=== PATIENT | male | born 1930 | race African-American/Black ===

== ENCOUNTER 2017-10-12 15:40 | Outpatient (CLI) | END 2017-10-12 16:00 | disposition short-term general hospital (02) | LOC: AMBL 15:40 | PROVIDERS: ATTEND Internal Medicine | DX: R11.2 Nausea with vomiting, unspecified (principal); R40.4 Transient alteration of awareness ==

== ENCOUNTER 2018-09-12 19:22 | Outpatient (CLI) ==
[2018-09-12 19:36] VITALS: BMI 22.8
== END 2018-09-12 19:26 | disposition critical access hospital (66) ==
LOC: AMBL 19:22
PROVIDERS: ATTEND Internal Medicine Geriatric Medicine
DX: I46.9 Cardiac arrest, cause unspecified (principal)

== ENCOUNTER 2018-09-12 19:33 | Emergency (ER) ==
[~2018-09-12 19:33] MED LIST: EPINEPHRINE 1 MG/10 ML SYRINGE IV STA; SODIUM BICARBONATE 8.4% IVP STA
[2018-09-12] MEDS ORDERED: SODIUM CHLORIDE 1,000 ML IV STA ×2 (19:34→20:02)
[2018-09-12] MEDS ORDERED: EPINEPHRINE 1 MG/10 ML SYRINGE IV STA ×6 (19:35→20:16)
[2018-09-12 19:36] VITALS: TEMP 96.3; BMI 22.8
[2018-09-12] MEDS ORDERED: SODIUM BICARBONATE 8.4% IVP STA ×3 (19:42→20:18)
[2018-09-12] MEDS ORDERED: WATER IV STA (19:49)
[2018-09-12] MEDS ORDERED: DEXTROSE 5% IV STA (19:49)
[2018-09-12] MEDS ORDERED: CORDARONE IV STA (19:49)
[2018-09-12] MEDS ORDERED: LACTATED RINGERS 1,000 ML IV STA (19:52)
[2018-09-12] MEDS ORDERED: ATROPINE SULFATE PFS IVP STA ×3 (20:03→20:15)
--- NOTE | 2018-09-12 20:14 | ED.PDOC ---
General ED Provider: Dr. EBONY GARCIA Chief Complaint: Respiratory Complaint Stated Complaint: Patient is an 88 year old male who is brought to the ER in full respiratory arrest from [facility]. Possibly chocked on food. He was in [place] with CPR in progress. unknown down time. Time Seen by Physician: 19:40 Mode of Arrival: Ambulance Information Source: [facility], EMT [facility] Documentation Reviewed and Agree: Yes Does patient meet sepsis criteria?: Yes If yes, has appropriate treatment been initiated?: Yes System Inflammatory Response Syndrome: Acutely Altered Mental Status Sepsis Protocol: For patient's 13 years and over: Temp is 96.8 and below OR 101 and greater Pulse >90 BPM Resp >20/minute Acutely Altered Mental Status Are patient's symptoms suggestive of a new infection, such as: -Pneumonia -Skin, Soft Tissue -Endocarditis -UTI -Bone, Joint Infection -Implantable Device -Acute Abdominal Infection -Wound Infection -Meningitis -Blood Stream Catheter Infection -Unknown Cardiac Resuscitation - Cardiac Resuscitation/Physical Exam Onset/Duration: Unknown Witnessed Arrest: Yes Down-time Before ALS Initiated: unknown Airway Prehospital Findings: Reports: Obstructed Breathing Prehospital Findings: Reports: Apnea Circulation/Rhythm Prehospital Findings: Reports: Asystole Disability/Neurological Prehospital Findings: Reports: Unresponsive Breathing Prehospital Intervention: Reports: Oxygen Circulation/Rhythm Prehospital Intervention: Reports: Chest compressions, Epinephrine (x1) Airway Prehospital Response: Tyler tube Breathing Prehospital Response: Present: Equal breath sounds Circulation/Rhythm Prehospital Response: Present: Pulses absent, Asystole Total Down Time CORRECTIONAL SUBSTANCE ABUSE COUNSELOR: Unknown Airway ED Findings: Obstructed (food ), Gag reflex absent Breathing ED Findings: Present: Apnea Circulation/Rhythm ED Findings: Present: Asystole Disability/Neurological ED Findings: Present: Unresponsive Airway ED Intervention: Foreign body removal (food ) Breathing ED Intervention: Bag-valve mask, ETT replaced, Intubated by ED physician Circulation/Rhythm ED Intervention: Chest compressions, Defibrillated (x5 ), IV/ IO placed, Epinephrine (x 9), Atropine Breathing ED Response: ETT in airway, Equal breath sounds, Confirmed by auscultation, Confirmed by CO2 detector Circulation/Rhythm ED Response: Present: Pulses present, V-Tach, PEA, Sinus Left Pupil: Fixed EMS/Code Sheet Reviewed: Yes Patient is a DNR: No Resuscitation Successful: Yes Differential Diagnoses: Acute PR, PEA, Respiratory Failure, Sudden Quality Indicator For Non-Traumatic Chest Pain/Syncope: EKG Performed (Normal sinus ) Past Medical History - Past Medical History Endocrine: Reports: Hypothyroid, Dyslipidemia Cardiovascular: Reports: Unknown Respiratory: Reports: Unknown Hematological: Reports: Anemia Gastrointestinal: Reports: Unknown Genitourinary: Reports: Kidney stones Neuro/Psych: Reports: CVA, Dementia Musculoskeletal: Reports: Unknown Cancer: Reports: Unknown - Surgical History General Surgical History: Reports: Unknown - Family History Family History: Reports: Unknown - Social History Smoking Status: Never smoker Hx Substance Use: No Alcohol Screening: None - Immunizations Tetanus Shot up to Date: Yes Interpretation - Radiology Interpretation Radiology Interpretation By: ED Physician Radiology Results: Negative Exam Interpreted: Portable CXR (Et tube in place 3 cm above the jose ) Re-Evaluation - Re-Evaluation Time of Re-Evaluation: 22:40 Status: Improved (developed a Rhythm ) Vital Signs Stable: Yes Lungs: Clear Skin: Other (cold) Physician Notification - Case Discussed Physician Notified: Feli Time of Notification: 20:34 (accepted ) Critical Care Note - Critical Care Note Total Time (mins): 75 Course - Course Hematology/Chemistry: 09/12/18 19:47 09/12/18 19:47 Orders, Labs, Meds: Lab Review 09/12/18 09/12/18 19:47 19:47 WBC 8.60 RBC 3.65 L Hgb 10.9 L Hct 36.1 L MCV 98.9 H MCH 29.9 MCHC 30.2 L RDW Coeff of Thong 13.7 Plt Count 130 L Immature Gran % (Auto) 0.7 Neut % (Auto) 23.3 Lymph % (Auto) 69.3 H [place] % (Auto) 4.9 Eos % (Auto) 1.5 Baso % (Auto) 0.3 Immature Gran # (Auto) 0.1 Neut # (Auto) 2.0 Lymph # (Auto) 6.0 H Frederick # (Auto) 0.4 Eos # (Auto) 0.1 Baso # (Auto) 0.0 Sodium 148.0 H Potassium 4.57 Chloride 109.7 H Carbon Dioxide 23.4 Anion Gap 19.47 BUN 22.3 H Creatinine 1.93 H Estimated GFR (MDRD) 40.00 BUN/Creatinine Ratio 11.55 Glucose 260.4 H Calcium 8.78 Total Bilirubin 0.21 AST 414.1 H ALT 430.5 H Alkaline Phosphatase 99.3 Total Creatine Kinase 170.3 H CK-MB (CK-2) 2.550 H CK-MB (CK-2) % 1.4900 Troponin I < 0.012 Total Protein 6.09 L Albumin 3.62 Globulin 2.47 Albumin/Globulin Ratio 1.46 Orders Category Date Time Status EKG-(ED ONLY) Stat CARDIO 09/12/18 20:02 Completed VENTILATOR Routine CARDIO 09/12/18 20:12 Ordered ED IV/MEDIPORT/POWERPORT .ONCE EMERGENCY 09/12/18 20:02 Active [place] [ED CATHETER INSERTION AND CARE] .ONCE EMERGENCY 09/12/18 21:00 Active CBC W/ AUTO DIFF Stat LAB 09/12/18 19:47 Completed COMPREHENSIVE METABOLIC PANEL Stat LAB 09/12/18 19:47 Completed CREATINE KINASE Stat LAB 09/12/18 19:47 Completed TROPONIN I Stat LAB 09/12/18 19:47 Completed 0.9 % Sodium Chloride [Saline Flush] MEDS 09/12/18 20:02 Discontinued 1 syr IVF PRN PRN 0.9 % Sodium Chloride [Sodium Chloride] 246 ml MEDS 09/12/18 20:30 Discontinued Norepinephrine Bitartrate Inj [Levophed] 4 mg IV 10 mcg/min Amiodarone HCl Inj [Cordarone] 300 mg MEDS 09/12/18 19:49 Discontinued Dextrose 5 %-Water [Dextrose 5%-Water IV Soln] 100 ml IV ONCE Atropine Sulfate Inj [Atropine Sulfate Pfs] MEDS 09/12/18 20:03 Discontinued 0.5 mg IVP ONCE STA Atropine Sulfate Inj [Atropine Sulfate Pfs] MEDS 09/12/18 20:10 Discontinued 0.5 mg IVP ONCE STA Atropine Sulfate Inj [Atropine Sulfate Pfs] MEDS 09/12/18 20:15 Discontinued 0.5 mg IVP ONCE STA Epinephrine [Epinephrine 1 mg/10 ml Syringe] MEDS 09/12/18 19:29 Discontinued 1 mg IV ONCE STA Epinephrine [Epinephrine 1 mg/10 ml Syringe] MEDS 09/12/18 19:32 Discontinued 1 mg IV ONCE STA Epinephrine [Epinephrine 1 mg/10 ml Syringe] MEDS 09/12/18 19:35 Discontinued 1 mg IV ONCE STA Epinephrine [Epinephrine 1 mg/10 ml Syringe] MEDS 09/12/18 19:38 Discontinued 1 mg IV ONCE STA Epinephrine [Epinephrine 1 mg/10 ml Syringe] [facility] 09/12/18 19:41 Discontinued 1 mg IV ONCE STA Epinephrine [Epinephrine 1 mg/10 ml Syringe] [facility] 09/12/18 19:44 Discontinued 1 mg IV ONCE STA Epinephrine [Epinephrine 1 mg/10 ml Syringe] [facility] 09/12/18 19:48 Discontinued 1 mg IV ONCE STA Epinephrine [Epinephrine 1 mg/10 ml Syringe] [facility] 09/12/18 20:16 Discontinued 1 mg IV ONCE STA Ringers Lactated Solution [Lactated Ringers] 1,000 ml [facility] 09/12/18 19:52 Discontinued IV BOLUS Sodium Bicarbonate [Sodium Bicarbonate 8.4%] [facility] 09/12/18 19:30 Discontinued 50 meq IVP ONCE STA Sodium Bicarbonate [Sodium Bicarbonate 8.4%] [facility] 09/12/18 19:33 Discontinued 50 meq IVP ONCE STA Sodium Bicarbonate [Sodium Bicarbonate 8.4%] [facility] 09/12/18 19:42 Discontinued 50 meq IVP ONCE STA Sodium Bicarbonate [Sodium Bicarbonate 8.4%] [facility] 09/12/18 19:50 Discontinued 50 meq IVP ONCE STA Sodium Bicarbonate [Sodium Bicarbonate 8.4%] [facility] 09/12/18 20:18 Discontinued 50 meq IVP ONCE STA Sodium Chloride 0.9% [Sodium Chloride] 1,000 ml [facility] 09/12/18 20:02 Discontinued IV 125 mls/hr Sodium Chloride 0.9% [Sodium Chloride] 1,000 ml [facility] 09/12/18 19:34 Discontinued IV BOLUS CHEST, 1V AP ONLY Stat RADS 09/12/18 20:02 Completed Medications Discontinued Medications Generic Name Dose Route Start Last Admin Trade Name Freq PRN Reason Stop Dose Admin Atropine Sulfate 0.5 mg 09/12/18 20:03 09/12/18 20:03 Atropine Sulfate Pfs IVP 09/12/18 20:04 0.5 mg ONCE STA Administration Atropine Sulfate 0.5 mg 09/12/18 20:10 09/12/18 20:10 Atropine Sulfate Pfs IVP 09/12/18 20:11 0.5 mg ONCE STA Administration Atropine Sulfate 0.5 mg 09/12/18 20:15 09/12/18 20:15 Atropine Sulfate Pfs IVP 09/12/18 20:16 0.5 mg ONCE STA Administration Epinephrine HCl 1 mg 09/12/18 19:29 09/12/18 19:49 Epinephrine 1 Mg/10 Ml Syringe IV 09/12/18 19:30 1 mg ONCE STA Administration Epinephrine HCl 1 mg 09/12/18 19:32 09/12/18 19:33 Epinephrine 1 Mg/10 Ml Syringe IV 09/12/18 19:33 1 mg ONCE STA Administration Epinephrine HCl 1 mg 09/12/18 19:35 09/12/18 19:35 Epinephrine 1 Mg/10 Ml Syringe IV 09/12/18 19:36 1 mg ONCE STA Administration Epinephrine HCl 1 mg 09/12/18 19:38 09/12/18 19:38 Epinephrine 1 Mg/10 Ml Syringe IV 09/12/18 19:39 1 mg ONCE STA Administration Epinephrine HCl 1 mg 09/12/18 19:41 09/12/18 20:41 Epinephrine 1 Mg/10 Ml Syringe IV 09/12/18 19:42 1 mg ONCE STA Administration Epinephrine HCl 1 mg 09/12/18 19:44 09/12/18 20:44 Epinephrine 1 Mg/10 Ml Syringe IV 09/12/18 19:45 1 mg ONCE STA Administration Epinephrine HCl 1 mg 09/12/18 19:48 09/12/18 20:48 Epinephrine 1 Mg/10 Ml Syringe IV 09/12/18 19:49 1 mg ONCE STA Administration Epinephrine HCl 1 mg 09/12/18 20:16 09/12/18 20:16 Epinephrine 1 Mg/10 Ml Syringe IV 09/12/18 20:17 1 mg ONCE STA Administration Sodium Chloride 1,000 mls @ 125 mls/hr 09/12/18 20:02 09/12/18 20:02 Sodium Chloride IV 09/13/18 04:01 125 mls/hr .Q8H STA Administration Norepinephrine Bitartrate 4 mg 250 mls @ 37.5 mls/hr 09/12/18 20:30 09/12/18 20:33 / Sodium Chloride IV 20 mcg/min .Q6H40M JOHANNA 75 mls/hr Titration Protocol 10 MCG/MIN Sodium Chloride 1,000 mls @ 1,000 mls/hr 09/12/18 19:34 09/12/18 19:34 Sodium Chloride IV 09/12/18 20:33 1,000 mls/hr BOLUS STA Administration Amiodarone HCl 300 mg/ 106 mls @ 10.3 mls/min 09/12/18 19:49 09/12/18 19:49 Dextrose IV 09/12/18 19:59 10.3 mls/min ONCE STA Administration Lactated Ringer's 1,000 mls @ 1,000 mls/hr 09/12/18 19:52 09/12/18 22:29 Lactated Ringers IV 09/12/18 20:51 1,000 mls/hr BOLUS STA Administration Sodium Bicarbonate 50 meq 09/12/18 19:30 09/12/18 19:33 Sodium Bicarbonate 8.4% IVP 09/12/18 19:31 50 meq ONCE STA Administration Sodium Bicarbonate 50 meq 09/12/18 19:33 09/12/18 19:33 Sodium Bicarbonate 8.4% IVP 09/12/18 19:34 50 meq ONCE STA Administration Sodium Bicarbonate 50 meq 09/12/18 19:42 09/12/18 19:42 Sodium Bicarbonate 8.4% IVP 09/12/18 19:43 50 meq ONCE STA Administration Sodium Bicarbonate 50 meq 09/12/18 19:50 09/12/18 19:50 Sodium Bicarbonate 8.4% IVP 09/12/18 19:51 50 meq ONCE STA Administration Sodium Bicarbonate 50 meq 09/12/18 20:18 09/12/18 20:18 Sodium Bicarbonate 8.4% IVP 09/12/18 20:19 50 meq ONCE STA Administration Sodium Chloride 1 syr 09/12/18 20:02 Saline Flush IVF PRN PRN To flush IV Vital Signs: Temp Pulse Resp BP Pulse Ox 09/12/18 20:33 86 20 95/58 L 09/12/18 20:23 50 L 18 137/74 09/12/18 20:13 40 L 20 09/12/18 20:12 20 09/12/18 20:00 99 09/12/18 19:57 79 10 L 134/72 09/12/18 19:33 96.3 F L 0 L 10 L 54/27 L 0 L Departure - Departure Time of Disposition: 20:46 Disposition: TSF SHORT-TRM HOSP Discharge Problem: Cardiac arrest Respiratory failure Qualifiers: Chronicity: acute Respiratory failure complication: hypoxia and hypercapnia Qualified Code(s): J96.01 - Acute respiratory failure with hypoxia Condition: Critical Pt referred to PMD for follow-up: No IPMP verified?: No Allergies/Adverse Reactions: Allergies No Known Allergies Allergy (Unverified 07/16/18 09:05) Home Medications: Ambulatory Orders Amlodipine Besylate 2.5 mg PO DAILY #60 tab-cap 07/16/18 Apixaban [Eliquis] 2.5 mg PO Q12HR #60 tab-cap 07/16/18 Atorvastatin Calcium [Lipitor] 80 mg PO BEDTIME #30 tab-cap 07/16/18 Colestipol HCl 1 gm PO Q12HR #60 tab-cap 07/16/18 Ferrous Sulfate [Ferrousul] 325 mg PO BID #60 tab-cap 07/16/18 Levothyroxine Sodium 88 mcg PO DAILY #30 tab-cap 07/16/18 Memantine HCl/Donepezil HCl [Namzaric 28 Mg-10 Mg Capsule] 1 each PO DAILY #30 tab-cap 07/16/18 Pyridostigmine [place] [Mestinon] 60 mg PO BID #60 tab-cap 07/16/18 Pyridostigmine [place] [Mestinon] 180 mg PO TID #90 tab-cap 07/16/18 Zinc Oxide [Skin Protectant] 198 gm TP Q8HR PRN #1 tb 07/16/18
[2018-09-12] MEDS ORDERED: LEVOPHED 4 MG in SODIUM CHLORIDE 246 ML IV SCH (20:30)
--- NOTE | 2018-09-12 20:33 | DI ---
EXAM: Single view of the chest. History: Unresponsive, intubated Findings: Heart size is normal. Endotracheal tube tip is at the level of the clavicles. No pneumot horax. Mild left basilar atelectasis. Air distended stomach. No acute osseous abnormalities. Impression: Endotracheal tube placement. No pneumothorax.
[2018-09-12 20:49] VITALS: BP 95/58
== END 2018-09-12 20:57 | disposition short-term general hospital (02) ==
LOC: ED 19:33
DX: I46.9 Cardiac arrest, cause unspecified (principal); J96.01 Acute respiratory failure with hypoxia; T18.9XXA Foreign body of alimentary tract, part unspecified, initial encounter; E03.9 Hypothyroidism, unspecified; E78.5 Hyperlipidemia, unspecified; D64.9 Anemia, unspecified; Z86.73 Personal history of transient ischemic attack (TIA), and cerebral infarction without residual deficits; Z79.899 Other long term (current) drug therapy
CPT/HCPCS: 36415; 80053; 82550; 82553; 84484; 85025; 93005; 93010; 96361; 96365; 96366; 96375; 99291; 99292

== ENCOUNTER 2018-09-12 21:04 | Outpatient (CLI) ==
[2018-09-12 19:36] VITALS: BMI 22.8
== END 2018-09-12 21:20 | disposition short-term general hospital (02) ==
LOC: AMBL 21:04
PROVIDERS: ATTEND Internal Medicine Geriatric Medicine
DX: I46.9 Cardiac arrest, cause unspecified (principal)